=== PATIENT | male | born 1955 | race Caucasian/White ===

== ENCOUNTER 2018-07-28 00:32 | Outpatient (CLI) | payer MEDICAID, SELFPAY ==
--- NOTE | 2018-07-28 13:29 | DI.CT_ITS ---
SYMPTOMS/DIAGNOSIS: CHRONIC SINUSITIS, J32.8, NASAL POLYPOSIS, J33.[address]: Comparison is made with May,. Bilateral medial antrectomies are seen. There has also been resection of some ethmoid sinuses. There has been interval improvement in the previously noted severe sinusitis. There is some mucus retention within both frontal sinuses, as well as both sphenoid sinuses, right greater than left. Mild maxillary sinus mucosal thickening and upper ethmoid mucosal thickening is seen. The mastoid air cells appear clear. The orbits and brain are unremarkable. IMPRESSION: Improvement in chronic sinusitis. The patient is status post sinus surgery.
== END 2018-07-28 00:52 ==
PROVIDERS: PCP Family Medicine; Visit Provider Otolaryngology
DX: J32.8 Other chronic sinusitis (principal); J33.9 Nasal polyp, unspecified; Z98.890 Other specified postprocedural states
CPT/HCPCS: 70486

== ENCOUNTER 2019-03-27 13:23 | Outpatient (REF) | payer MEDICAID, SELFPAY ==
[2019-03-27 18:44] LABS: TSH (W/Ref FT4) 10.67 uIU/mL (0.36-3.74)
[2019-03-27 19:00] LABS: FREE T4 0.73 ng/dL (0.76-1.46)
== END 2019-03-27 13:43 ==
LOC: LBN 13:23
PROVIDERS: PCP Family Medicine; Visit Provider Family Medicine
DX: E03.9 Hypothyroidism, unspecified (principal)
CPT/HCPCS: 84439; 84443

== ENCOUNTER 2019-06-26 12:04 | Outpatient (REF) | payer MEDICAID, SELFPAY ==
[2019-06-26 19:36] LABS: TSH (W/Ref FT4) 8.35 uIU/mL (0.36-3.74)
[2019-06-26 19:53] LABS: FREE T4 0.95 ng/dL (0.76-1.46)
== END 2019-06-26 12:24 ==
LOC: LBN 12:04
PROVIDERS: PCP Family Medicine; Visit Provider Family Medicine
DX: E03.9 Hypothyroidism, unspecified (principal)
CPT/HCPCS: 84439; 84443

== ENCOUNTER 2021-02-04 09:13 | Outpatient (CLI) | payer MEDICARE, MEDICAID, SELFPAY ==
--- OUTSIDE RECORDS SUMMARY | 2021-02-04 09:19 | XMS_ITS ---
:1955 Author Care Team Providers Name Role Phone MAHENDRA POPE MD Senior Education Specialist [phone] SKYLAR RUIZ ([facility]) Primary Care Provi wilver [phone] [facility] MEDICAL RECORDS Primary Care Provider [phone] Allergies Code Code System Name Reaction Severity Status Onset NKDA ? Medications Name Status Start Date Stop Date ? ? amlodipine 5 mg tablet Active ? Not avail able Arnuity Ellipta 200 mcg/actuation powder for inhalation Complete d 12/20/2015 01/19/2016 1 (one) Inhalation: daily azithromycin 250 mg tablet Completed ? 06/30 budesonide 0.5 mg/2 mL suspension Active ? Not available for nebulization cephalexin 250 mg capsule Completed ? 2017 Dupixent 300 mg/2 mL subcutaneous syringe Active ? Not available INJECT 1 SYRINGE UNDER THE SKIN EVERY 2 WEEKS Farxiga 10 mg tablet Active ? Not availab le Flonase Allergy Relief 50 mcg/actuation nasal spray,suspensi on Completed 03/20/2016 05/07/2017 1 (one) Suspension Suspension: daily ipratropium 0.5 mg-albuterol 3 mg Active ? Not available (2.5 mg base)/3 mL nebulization soln levofloxacin 500 mg tablet Active ? Not a vailable levothyroxine 100 mcg tablet Active ? Not available levothyroxine 112 mcg tablet Active ? Not available losartan 100 Completed ? 06/30/2018 mg-hydrochlorothiazide 12.5 mg tablet losartan 100 Active ? Not available mg-hydrochlorothiazide 25 mg tablet losartan 50 Completed ? 06/30/2018 mg-hydrochlorothiazide 12.5 mg tablet lovastatin 40 mg tablet Active ? Not avai lable metformin 1,000 mg tablet Active ? Not av ailable montelukast 10 mg tablet Active ? Not marlo ilable TAKE ONE TABLET BY MOUTH AT BEDTIME mupirocin 2 % topical ointment Active ? N ot available neomycin 3.5 mg/g-polymyxin B Active ? No t available 10,000 unit/g-dexameth 0.1 % eye oint Nucala 100 mg subcutaneous solution Completed ? 06/30/2018 Inject 1 mL every 4 weeks by subcutaneous route. 1.0ml/100mg given sc over left distal tricep. Lot #[id number], Exp. 03/2020. omeprazole 40 mg capsule,delayed Active ? Not available release oxycodone 5 mg tablet Active ? Not availa ble prednisolone acetate 1 % eye Active ? Not available drops,suspension prednisone 10 mg tablet Completed ? 08/12/19 19 ProAir HFA 90 mcg/actuation Active ? Not available aerosol inhaler Spiriva Respimat 1.25 Active ? Not availa ble mcg/actuation solution for inhalation sulfamethoxazole 800 Completed ? 10/14/2018 mg-trimethoprim 160 mg tablet Symbicort 160 mcg-4.5 Active ? Not availa ble mcg/actuation HFA aerosol inhaler Xopenex HFA 45 mcg/actuation aerosol inhaler Completed 08/201503/24/2016 2 (two) Puff: every six hours, as needed Problems Name Status Onset Date Source ? Severe Persistent Asthma Unknown 06/30/2018 ? Severe Persistent Asthma Active 06/30/2018 ? Sinusitis Active ? History Acute Exacerbation of Asthma Active ? His tory Acute Bronchospasm Active ? History Wheezing Unknown ? History Procedure by Method Active ? History Procedures Date Name Performed by ? 07/19/1960 Tonsilectomy/adenoids Information not av ailable 10/14/2018 Spirometry Information not avai lable Notes: 09/14/2017 endoscopic sin us surgery ([facility] Dr. Pedraza) Results Lab Results None recorded. Past Encounters None recorded. Social History Tobacco Smoking Status Never Smoker Vaccine List Vaccine Type influenza, injectable, quadrivalent 05/16/2018 pneumococcal polysaccharide PPV23 05/16/2018 Tdap 12/11/2009 Plan of Care Reminders Provider Appointments None ? ? recorded. Lab None ? ? recorded. Referral None ? ? recorded. Procedures None ? ? recorded. Surgeries None ? ? recorded. Imaging None ? ? recorded. Vitals 10/14/2018 11:30AM Office 30 Height Weight BMI Blood Pressure 187.96 cm 151.2 kg 42.8 kg/m2 144/80 mm[Hg] 08/12/2018 09:30AM Office 30 Height Weight BMI Blood Pressure 187.96 cm 147.75 kg 41.8 kg/m2 140/80 mm[Hg] 06/30/2018 10:15AM Office 30 Height Weight BMI Blood Pressure 187.96 cm 144.5 kg 40.9 kg/m2 128/80 mm[Hg] 02/24/2018 08:00AM Injection 30 Height Weight BMI Blood Pressure 187.96 cm 145 kg 41 kg/m2 150/88 mm[Hg] 01/27/2018 Blood Pressure 140/80 mm[Hg] 12/23/2017 08:00AM Injection 30 Height Weight BMI Blood Pressure 187.96 cm 145.6 kg 41.2 kg/m2 148/80 mm[Hg] 10/15/2017 Height Weight Blood Pressure 187.96 cm 146.51 kg 142/80 mm[Hg] 09/10/2017 Height Weight Blood Pressure 187.96 cm 141.52 kg 136/70 mm[Hg] 08/26/2017 Height Weight Blood Pressure 187.96 cm 141.52 kg 132/84 mm[Hg] 06/01/2017 Height Weight Blood Pressure 187.96 cm 140.61 kg 140/90 mm[Hg] 05/07/2017 Height Weight Blood Pressure 187.96 cm 138.8 kg 144/80 mm[Hg] 07/03/2016 Height Weight Blood Pressure 187.96 cm 133.36 kg 126/84 mm[Hg] 06/19/2016 Height Weight Blood Pressure 187.96 cm 133.53 kg 124/82 mm[Hg] 02/06/2016 Height Weight Blood Pressure 187.96 cm 138.4 kg 126/84 mm[Hg] 12/20/2015 Height Weight Blood Pressure 187.96 cm 139.71 kg 140/86 mm[Hg] 10/18/2015 Height Weight Blood Pressure 187.96 cm 139.25 kg 138/84 mm[Hg] 09/20/2015 Height Weight Blood Pressure 187.96 cm 139.43 kg 138/78 mm[Hg]
--- OUTSIDE RECORDS SUMMARY | 2021-02-04 09:19 | XMS_ITS ---
:1955 Author Care Team Providers Name Role Phone DR. SKYLAR RUIZ Primary Care Provider [phone] DR. SKYLAR RUIZ Referring Provider [phone] Allergies Code Code System Name Reaction Severity Status Onset NKDA ? Medications Name Status Start Date Stop Date ? ? budesonide-formoterol HFA 160 mcg-4.5 mcg/actuation aerosol inha ler Active ? Not available Inhale 2 puffs twice a day by inhalation route. Dupixent 300 mg/2 mL subcutaneous syringe Active ? Not available Inject 300 mg every 2 weeks by subcutaneous route. FreeStyle Lite Strips Active ? Not availa ble TEST DAILY ibuprofen 200 mg tablet Active ? Not avai lable Take 2 tablets every 4 hours by oral route as needed. levothyroxine 100 mcg tablet Active ? Not available Take 1 tablet every day by oral route. losartan 100 mg-hydrochlorothiazide 25 mg tablet Active ? Not available Take 1 tablet every day by oral route. lovastatin 40 mg tablet Active ? Not avai lable Take 1 tablet every day by oral route. metformin 1,000 mg tablet Active ? Not av ailable Take 1 tablet twice a day by oral route. multivitamin Active ? Not available ONCE DAILY mupirocin calcium 2 % nasal ointment Completed ? 03/21/2020 APPLY ONE-HALF OF THE OINTMENT FROM THE TUBE INTO EACH NOSTRIL BY TOPICAL ROUTE 2 TIMES PER DAY IN THE MORNING AND EVENING Nucala 100 mg subcutaneous solution Active ? Not available Inject 100 mg every 4 weeks by subcutaneous route. omeprazole 40 mg capsule,delayed release Active ? Not available Take 1 capsule twice a day by oral route. Pred Forte 1 % eye drops,suspension Completed ? 03/21/2020 INSTILL 1 DROP INTO AFFECTED EYE(S) BY OPHTHALMIC ROUTE 2 TIMES PER DAY sulfamethoxazole 800 mg-trimethoprim 160 mg tablet Active ? Not available Take 1 tablet every 12 hours by oral route. tiotropium 2.5 mcg-olodaterol 2.5 mcg/actuation mist for inhalat ion Active ? Not available Inhale 2 puffs every day by inhalation route. Vitamin D3 25 mcg (1,000 unit) tablet Active ? Not available Take 1 tablet every day by oral route. Xopenex HFA 45 mcg/actuation aerosol inhaler Active ? Not available Inhale 2 puffs every 4 hours by inhalation route. Problems Name Status Onset Date Source ? Type 2 Diabetes Mellitus Active 08/10/2018 ? On Examination - Cracked Skin of Feet Active 08/10/2018 ? Procedures Date Name Performed by ? ? External Maxillary Antrostomy Informatio n not available ? Sphenoid Sinus Surgery Information not a vailable ? Ethmoidotomy Information not avai lable ? Tonsilectomy/adenoids Information not av ailable Results Lab Results None recorded. Past Encounters 02/22/2020 Pain of Left Ankle Joint Bernabe Harding: [address] [place] [address], Ph. Social History Tobacco Smoking Status Never Smoker Notes: 019 Vaccine List None recorded. Plan of Care Reminders Provider Appointments None ? ? recorded. Lab None ? ? recorded. Referral None ? ? recorded. Procedures None ? ? recorded. Surgeries None ? ? recorded. Imaging None ? ? recorded. Vitals 02/22/2020 08:30AM NEW PATIENT Weight Blood Pressure 136.08 kg 138/70 mm[Hg] 08/24/2018 04:15PM NEW PATIENT Height Weight BMI Blood Pressure 187.96 cm 136.08 kg 38.5 kg/m2 138/70 mm[Hg]
[2021-02-04 10:56] LABS: ALT 33 U/L (16-63); AST 10 U/L (15-37); Alkaline Phosphatase 66 U/L (46-116); Anion Gap 11.1 mmol/L (3-11); BUN 26 mg/dL (7-18); Bilirubin, Total 0.7 mg/dL (0.2-1.0); CO2 26.9 mmol/L (21.0-32.0); CREATININE 1.3 mg/dL (0.70-1.30); Calcium 9.5 mg/dL (8.5-10.1); Calculated LDL 103 mg/dL (<100); Chloride 104 mmol/L (98-107); Cholesterol 195 mg/dL (<200); Estimated GFR 55.23 (mL/min/1.73m2); Glucose 145 mg/dL (74-106); HDL Cholesterol 43 mg/dL (40-60); Sodium 142 mmol/L (136-145); Total Protein 8.1 g/dL (6.4-8.2); Triglyceride 249 mg/dL (<150)
== END 2021-02-04 09:14 | disposition home or self-care (01) ==
LOC: LBO 09:18
PROVIDERS: PCP Family Medicine; Visit Provider Family Medicine
DX: E11.9 Type 2 diabetes mellitus without complications (principal)
CPT/HCPCS: 36415; 80053; 80061

== ENCOUNTER 2023-11-19 18:04 | Inpatient (IN) | payer MEDICARE, SELFPAY ==
[2023-11-19] VITALS (19 sets, daily range): BP systolic 140–169; BP diastolic 72–85; PULSE 64–85; RESP 9–20; TEMP 36.8–36.9; O2SAT 96–100
--- NOTE | 2023-11-19 18:10 | W.ED.GENAD ---
Discharge Plan Disposition Patient Disposition: Admit to [facility] Condition: Good Discharge Details Clinical Impression: Diplopia Primary Care Provider: Hernandez Melendrez ED Provider: Tucker Cristobal Mesa Meds and New Rx's Prescriptions: No Action budesonide-formoterol [Symbicort] 160-4.5 mcg/actuation HFA aerosol inhaler 1 inh inhalation ONCE sildenafil [Viagra] 100 mg tablet 100 mg PO PRN Qty: 12 12RF Rx Instructions: administer 30 minutes to 4 hours before activity Jardiance 25 mg tablet 25 mg PO DAILY Qty: 90 3RF albuterol sulfate 90 mcg/actuation HFA aerosol inhaler 2 puff IH QID PRN (Reason: shortness of breath or wheezing) Qty: 18 12RF semaglutide 14 mg tablet 14 mg PO DAILY Qty: 90 3RF multivitamin [Daily Vitamin] 1 EACH tablet 1 ea PO DAILY cholecalciferol (vitamin D3) 1,000 UNIT tablet 1,000 unit PO DAILY (DME) FreeStyle Lite Strips 1 EACH strip 1 ea Miscellaneous DAILY Qty: 100 Rx Instructions: To test Blood Sugars qd, to keep AIC below 7.0. DX: 11.9 (DME) lancets [FreeStyle Lancets] 1 EACH misc 1 ea Miscellaneous DAILY Qty: 100 Rx Instructions: To test blood sugars daily to keep AIC below 7.0. Dx: 11.9. ibuprofen 200 MG tablet 400 mg PO Q4H PRN Dupixent Syringe 300 mg/2 mL syringe 300 mg SC Q2W Qty: 4 12RF metformin 1,000 mg tablet 1,000 mg PO BID Qty: 180 3RF Rx Instructions: to control diabetes (E11.9) losartan-hydrochlorothiazide 100-25 mg tablet 1 tab PO DAILY Qty: 90 3RF levothyroxine 125 mcg tablet 125 mcg PO DAILY Qty: 90 3RF lovastatin 40 mg tablet 40 mg PO DAILY Qty: 90 3RF Rx Instructions: to reduce cardiovascular risk, diabetes, lower cholesterol HPI General Mode of arrival: ambulatory. Date/Time Provider Initiated Documentation: 11/19/23 18:10. Limitations to Documentation: no limitations. Information obtained by: patient, RN notes reviewed and old records reviewed. HPI Narrative: Patient referred into ED from urgent care for evaluation of double vision. Patient reports that at the beginning of this week he had felt like maybe he was coming down with something but nothing specific. On Wednesday developed some right sinus pressure but no real pain. Continued on Wednesday so he started taking ibuprofen. Has no pain whatsoever currently and has never had any fever, earache, headache, eye pain, cough. Maybe had a little bit of a sore throat. This morning when he woke up around 7 AM he realized he was experiencing double vision. This has continued throughout the day and he went to urgent care this evening. After evaluation there he was sent here for further workup. He denies any dizziness, gait disturbance, numbness, weakness, speech problem, mental status change. Denies any eye pain. Does have history of diabetes, high cholesterol, hypertension. Related Data Home Medications Medication Instructions Recorded Confirmed cholecalciferol (vitamin D3) 25 1,000 unit PO DAILY 01/17/13 08/24/23 mcg (1,000 unit) tablet multivitamin (Daily Vitamin tablet) 1 ea PO DAILY 01/17/13 08/24/23 blood sugar diagnostic (FreeStyle #100 strips 09/03/15 08/24/23 Lite Strips) lancets 28 gauge (FreeStyle #100 ea 09/03/15 08/24/23 Lancets) ibuprofen 200 mg tablet 400 mg PO Q4H PRN 09/24/15 08/24/23 albuterol sulfate 90 mcg/actuation 2 puff inhalation QID PRN 06/28/20 08/24/23 aerosol inhaler shortness of breath or wheezing #18 grams budesonide-formoterol HFA 160 1 inh inhalation ONCE 11/04/21 08/24/23 mcg-4.5 mcg/actuation aerosol inhaler (Symbicort) dupilumab 300 mg/2 mL subcutaneous 300 mg (2 mL) subcut Q2W #4 mL 01/05/23 08/24/23 syringe (Dupixent) metformin 1,000 mg tablet 1,000 mg PO BID #180 tab-caps 01/09/23 08/24/23 Viagra 100 mg tablet (sildenafil) 100 mg PO PRN #12 tabs 05/25/23 08/24/23 empagliflozin 25 mg tablet 25 mg PO DAILY #90 tabs 05/25/23 08/24/23 (Jardiance) levothyroxine 125 mcg tablet 125 mcg PO DAILY #90 tabs 07/23/23 08/24/23 losartan 100 1 tab PO DAILY #90 tab-caps 07/23/23 08/24/23 mg-hydrochlorothiazide 25 mg tablet semaglutide 14 mg tablet 14 mg PO DAILY #90 tabs 08/24/23 08/24/23 lovastatin 40 mg tablet 40 mg PO DAILY #90 tab-caps 09/21/23 Previous Rx's Medication Instructions Recorded albuterol sulfate 90 mcg/actuation 2 puff inhalation QID PRN 06/28/20 aerosol inhaler shortness of breath or wheezing #18 grams dupilumab 300 mg/2 mL subcutaneous 300 mg (2 mL) subcut Q2W #4 mL 01/05/23 syringe (Dupixent) metformin 1,000 mg tablet 1,000 mg PO BID #180 tab-caps 01/09/23 Viagra 100 mg tablet (sildenafil) 100 mg PO PRN #12 tabs 05/25/23 empagliflozin 25 mg tablet 25 mg PO DAILY #90 tabs 05/25/23 (Jardiance) levothyroxine 125 mcg tablet 125 mcg PO DAILY #90 tabs 07/23/23 losartan 100 1 tab PO DAILY #90 tab-caps 07/23/23 mg-hydrochlorothiazide 25 mg tablet semaglutide 14 mg tablet 14 mg PO DAILY #90 tabs 08/24/23 lovastatin 40 mg tablet 40 mg PO DAILY #90 tab-caps 09/21/23 Allergies Allergy/AdvReac Type Severity Reaction Status Date / Time No Known Allergies Allergy Verified 11/19/23 18:13 Review of Systems Narrative: Per HPI Exam Narrative Exam Narrative: Const: WDWN male in NAD. VS per triage. HEENT: NC/AT. Normal facial exam. Eyes: Normal conjunctiva and sclera. PERRL and EOMI but has disconjugate gaze with right eye ever so slightly turned in. VF are in tact. Neck: Supple. Trachea midline. Lungs: Normal respiratory effort. Lungs are clear. Cor: RRR without murmur. Good radial pulses. Neuro: A+O x 3. Normal speech, mentation, gait. Cranial nerves II - XII grossly intact. No gross motor or sensory deficit. Ext: No C/C/E. Skin: Warm and dry. Medical Decision Making Patient presenting to ED with diplopia which he first noticed when he woke up this morning. His extraocular muscles are intact but he does have disconjugate gaze. His visual fuentes are intact. His neurologic exam is otherwise normal and his NIH score is 0. He thought it was related to sinus infection but is not having any sinus pain or discomfort currently. Be highly unlikely that without pain or significant swelling that this is related to such. More concerned regarding possible central cause and will obtain EKG, laboratory studies, CTA of the head and neck. Patient's EKG is sinus rhythm with PAC and no acute ST changes. Laboratory studies unremarkable. Little bit of renal insufficiency which is baseline with a creatinine 1.4. CT head is negative for acute pathology and specifically no orbital findings. CTA head and neck with no LVO, dissection, acute findings. Concern for lacunar infarct, less likely something like MS given his age and acute onset. Will dose with aspirin and discussed with hospitalist to admit for MRI, ECHO, further CVA/TIA workup. Medical Records Medical records reviewed: Yes I reviewed the patient's medical records. Lab Data Lab results reviewed: Yes I reviewed the patient's lab results. ECG Data Attestation: I personally reviewed and interpreted this ECG (s) as follows: Quality:SDOH Health Related Social Needs: No Data to Display PFSH All Active Problems (Updated 11/19/23 @ 21:47 by Tucker Cristobal MD) Diplopia (Acute) Patellar bursitis of right knee (Acute) Umbilical hernia (Acute) Eversion deformity of left foot (Acute) Sinusitis with nasal polyps (Chronic 02/22/17) Butts/Tabor Impotence due to erectile dysfunction (Chronic 04/15/12) 03/2012 Chronic sinusitis, unspecified (Chronic 09/14/17) Dr Pedraza [facility] ENT- chronic rhinosinusitis with polyposis Bilateral nasal endoscopy Medical History Diabetes mellitus type II, controlled (12/18/07) DIET CONTROLLED, 2008 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 No problems noted. Social History Smoking/Tobacco Use Status: Never Smoking risk assessment performed?: Yes Alcohol Intake: never Drug use: Never Substance use type: does not use current occupation: [employer] Pets and animals: No Sexually active: Yes Current gender identity: male What is your relationship status?: How often do you talk on the phone with friends or family?: three or more times per week How often do you get together with friends or relatives?: three or more times per week Do you belong to any clubs or organized social groups?: no Panel score (0-1 are the most socially isolated patients): 1 What type of physical activity do you participate in: decline to answer Duration: decline to answer Frequency: decline to answer Seatbelt use: always Drive intox or ride w/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
--- NOTE | 2023-11-19 18:15 | RT.EKG_ITS ---
APPROVED REPORT Exam: Resting ECG Reason for Exam: possible TIA/CVA Patient Location: E HR:74 bpm ECG Measurements Heart Rate 74 AXIS ID 157 P 50 QRSd 84 QRS -8 QT 369 T 55 QTc 407 Conclusion Sinus rhythm...normal P axis, V-rate 60- 99 Atrial premature complex...SV complex w/ short R-R interval Normal [place] Normal ST Segments.
[2023-11-19] MEDS: Lactated Ringers 1,000 ML 1000 ML IV (18:39)
[2023-11-19 19:25] LABS: Abs Immature Grans 0.06 10^3/uL (0.0-0.06); Absolute Basophil Count 0.07 10^3/uL (0.0-0.2); Absolute Eosinophil Count 1.63 10^3/uL (0.0-0.7); Absolute Monocyte Count 1.09 10^3/uL (0.1-0.8); Basophils % 0.6 %; Eosinophils % 14.3 %; HCT 48.6 % (40.0-50.0); HGB 16.7 g/dL (13.5-17.5); Immature Grans % 0.5 %; Lymphocytes % 34.4 %; MCH 33.5 pg (27.0-33.0); MCHC 34.4 % (32.0-36.0); MCV 97 fL (80-95); MPV 9.8 fL (8.0-11.0); Monocytes % 9.6 %; Neutrophils % 40.6 %; Platelet Count 205 10^3/uL (130-400); RBC 4.99 10^6/uL (4.36-5.78); RDW 12.2 % (11.8-14.1); RDW-SD 44.1 fL; WBC 11.38 10^3/uL (4.4-10.8)
[2023-11-19 19:27] LABS: Absolute Lymphocyte Count 3.91 10^3/uL (1.2-3.4); Absolute Neutrophil Count 4.62 10^3/uL (1.2-6.7)
[2023-11-19] MEDS: Omnipaque 350 MG/ML 100 ML BTL IJ (19:35)
[2023-11-19] MEDS: Normal Saline - Diluent 50 ML VIAL IJ (19:38)
[2023-11-19 19:40] LABS: ALT 30 U/L (16-63); AST 14 U/L (15-37); Albumin 4.3 g/dL (3.4-5.0); Alkaline Phosphatase 84 U/L (46-116); Anion Gap 10.8 mmol/L (3-11); BUN 31 mg/dL (7-18); Bilirubin, Total 0.8 mg/dL (0.2-1.0); CO2 28.2 mmol/L (21.0-32.0); CREATININE 1.4 mg/dL (0.70-1.30); Calcium 9.9 mg/dL (8.5-10.1); Chloride 101 mmol/L (98-107); Estimated GFR 54.41 (mL/min/1.73m2); Glucose 141 mg/dL (74-106); Potassium 3.7 mmol/L (3.5-5.1); Sodium 140 mmol/L (136-145); Total Protein 9.2 g/dL (6.4-8.2)
--- NOTE | 2023-11-19 19:41 | DI.CT_ITS ---
Exam(s) CT BRAIN NECK CTA EXAM: CT BRAIN NECK CTA CLINICAL HISTORY: diplopia. TECHNIQUE: Imaging Protocol: Axial CT angiography was performed with multi-slice acquisition and mu lti-planar and MIP reconstructions. CONTRAST MATERIAL: Intravenous: Omnipaque 350 Contrast volume:85 ml COMPARISON: CT SINUS CT WITHOUT CONTRAST from 06/26/[address] WITHOUT CONTRAST from 06/15/2017 FINDINGS: CT Head W/O and W contrast: Ventricles and Extra axial spaces: Normal in size and morphology for the patient's age. Hemorrhage: None. Cerebral parenchyma: No evidence of acute infarct or mass. Midline shift: None. Brainstem/Cerebellum: No acute findings.. Calvarium: Normal. Visualized Paranasal sinuses/Mastoids: Clear. Sinus surgery. Mild mucosal thickening. Soft Tissues: Unremarkable. Enhancement: Normal. CTA Brain W: Internal Carotid Arteries: Petrous: Normal. Cavernous: Normal. Cerebral: Normal. Middle Cerebral Arteries: Right: No aneurysm, occlusion or significant stenosis. Left: No aneurysm, occlusion or significant stenosis. Anterior Cerebral Arteries: Right: No aneurysm, occlusion or significant stenosis. Left: No aneurysm, occlusion or significant stenosis. Posterior cerebral Arteries: Right: No aneurysm, occlusion or significant stenosis. Left: No aneurysm, occlusion or significant stenosis. Vertebral Arteries: Right: No aneurysm, occlusion or significant stenosis. Left: No aneurysm, occlusion or significant stenosis. Basilar Artery: No aneurysm, occlusion or significant stenosis. CTA Neck W: Common Carotid: Right: No dissection, occlusion or significant stenosis. Left: No dissection, occlusion or significant stenosis. External Carotid: Right: No dissection, occlusion or significant stenosis. Left: No dissection, occlusion or significant stenosis. Internal Carotid: Right: No dissection, occlusion or significant stenosis. Left: No dissection, occlusion or significant stenosis. Vertebral Artery: Right: No dissection, occlusion or significant stenosis. Left: No dissection, occlusion or significant stenosis. Lung Apices: Normal. Bones: Degenerative changes in the cervical spine. No acute abnormality. Soft Tissues: Normal. IMPRESSION: 1. CTA brain: Normal CTA examination of the [place]. 2. Head CT: Unremarkable CT Head. 3. CTA neck: Normal CTA examination of the neck. RADIATION DOSE DELIVERED: Total DLP DATA REPOSITORY: All CT scans at this facility are submitted to the National Radiology Data Registry (NRDR) Dose Index Registry (DIR) with the [employer] (ACR). RADIATION OPTIMIZATION: All CT scans at this facility use at least one of these dose optimization te chniques: automated exposure control; mA and/or kV adjustment per patient size (includes targeted exa ms where dose is matched to clinical indication); or iterative reconstruction.
--- NOTE | 2023-11-19 20:24 | DI.VRAD_ITS ---
PROCEDURE INFORMATION: Exam: CTA Head Without And With Contrast, Arteriography Exam date and time: 11/19/2023 7:35 PM Age: 68 years old Clinical indication: Diplopia TECHNIQUE: Imaging protocol: Computed tomographic angiography of the head without and with contrast. Exam focused on the arteries. 3D rendering (Not supervised by radiologist): MIP and/or 3D reconstructed images were created by the technologist. Radiation optimization: All CT scans at this facility use at least one of these dose optimization techniques: automated exposure control; mA and/or kV adjustment per patient size (includes targeted exams where dose is matched to clinical indication); or iterative reconstruction. Contrast material: [id number]; Contrast volume: 100 ml; Contrast route: INTRAVENOUS (IV); COMPARISON: CT Head^SINUS [facility] (Adult) 07/28/2018 1:11 PM FINDINGS: ANTERIOR CIRCULATION: Right internal carotid artery: Intracranial segment is patent with no significant stenosis or occlusion. No aneurysm. Right middle cerebral artery: No occlusion or significant stenosis. No aneurysm. Right anterior cerebral artery: No occlusion or significant stenosis. No aneurysm. Left internal carotid artery: Intracranial segment is patent with no significant stenosis. No aneurysm. Left middle cerebral artery: No occlusion or significant stenosis. No aneurysm. Left anterior cerebral artery: No occlusion or significant stenosis. No aneurysm. POSTERIOR CIRCULATION: Right vertebral artery: No occlusion or significant stenosis. No aneurysm. Left vertebral artery: No occlusion or significant stenosis. No aneurysm. Basilar artery: No occlusion or significant stenosis. No aneurysm. Right posterior cerebral artery: No occlusion or significant stenosis. No aneurysm. Left posterior cerebral artery: No occlusion or significant stenosis. No aneurysm. HEAD: Brain: There is no acute intracranial hemorrhage, mass effect or midline shift. There is no large acute territorial cerebral infarct. Cerebral ventricles: Normal. No ventriculomegaly. Bones: No acute fracture. Orbital cavities: The bilateral orbits appear grossly unremarkable. No evidence of orbital mass. The globes are intact bilaterally. Paranasal sinuses: There is mild mucosal thickening in the ethmoid and maxillary sinuses with evidence of prior ethmoidectomy and antrostomy. Mastoid air cells: Visualized mastoids are normal. No mastoid effusion. Soft tissues: Unremarkable. IMPRESSION: No acute intracranial hemorrhage, mass effect or midline shift. No evidence of stenosis, occlusion or aneurysm. PROCEDURE INFORMATION: Exam: CTA Neck Without And With Contrast Exam date and time: 11/19/2023 7:35 PM Age: 68 years old Clinical indication: Diplopia TECHNIQUE: Imaging protocol: Computed tomographic angiography of the neck without and with contrast. Exam focused on the cervical segments of the vasculature. 3D rendering (Not supervised by radiologist): MIP and/or 3D reconstructed images were created by the technologist. Radiation optimization: All CT scans at this facility use at least one of these dose optimization techniques: automated exposure control; mA and/or kV adjustment per patient size (includes targeted exams where dose is matched to clinical indication); or iterative reconstruction. Contrast material: [id number]; Contrast volume: 100 ml; Contrast route: INTRAVENOUS (IV); COMPARISON: CT Head^SINUS [facility] (Adult) 07/28/2018 1:11 PM FINDINGS: Right common carotid artery: No stenosis. No dissection or occlusion. Right internal carotid artery: No stenosis of the extracranial segment. No dissection or occlusion. Right external carotid artery: No occlusion or stenosis of the origin. Left common carotid artery: No stenosis. No dissection or occlusion. Left internal carotid artery: No stenosis of the extracranial segment. No dissection or occlusion. Left external carotid artery: No occlusion or stenosis of the origin. Right vertebral artery: No stenosis. No dissection or occlusion. Left vertebral artery: No stenosis. No dissection or occlusion. Soft tissues: Normal. No significant soft tissue swelling. Bones/joints: No acute fracture. IMPRESSION: No stenosis or occlusion. REFERENCES: NASCET CRITERIA. The degree of stenosis in the cervical segment of the internal carotid artery is based on NASCET criteria. Normal is no stenosis. Mild is less than 50% stenosis. Moderate is 50-69% stenosis. Severe is 70% to 99% stenosis. Total occlusion is no detectable patent lumen. Dictated and Authenticated by: Aylin Gentile MD. Ordering:GIO Ceballos MD
[2023-11-19] MEDS: Aspirin 81 MG CHEW 324 MG CH (21:46)
[2023-11-19] MEDS: Acetaminophen 325 MG TAB (21:48)
--- NOTE | 2023-11-19 21:49 | HPE_ITS ---
Date of service: 11/19/23 Time of Service: 21:50 Assessment and Plan Assessment and plan (1) Diplopia: Start date: 11/19/23 Status: Acute Assessment and plan: This is a 68-year-old gentleman who awakened with double vision on the day of presentation to the ED. There are no other focal neurological findings and he denies any tick bites or recent signs or symptoms of Lyme disease. He does have risk factors for CVA with hypertension, diabetes and obesity with hyperlipidemia. He has had no previous cardiovascular events. He denies any headache. Differential diagnosis includes CVA though imaging is negative and we need to think about acute Lyme disease. He was initiated on Rocephin which can be switched to doxycycline in the morning for discharge if he is doing well. He also was given a low-dose of aspirin and will continue baby aspirin daily along with maximum dose statin therapy. He should allow permissive hypertension during his observation and at home for the next 48 hours with patient willing to monitor this and hold his oral therapy if he is able to be discharged in the morning. He does have scheduled appointments in the morning and if imaging cannot be performed at this institution over the weekend, he is going to wait to risk and benefits of discharge home with continued self monitoring on aspirin and doxycycline. Tickborne disease panel not be available over the weekend as well since this is sent to [facility] for performance of lab. Patient is a full code. (2) Diabetes mellitus type II, controlled: Assessment and plan: Hold oral agents for now with glucometer members before meals and at bedtime and short acting insulin coverage. He will restart his metformin after 48 hours since he did IV dye but could continue his other oral medications at home. Usually his diabetes is well-controlled. Qualifiers: Chronic kidney disease stage: stage 3 (moderate) Diabetes mellitus complication detail: with chronic kidney disease Diabetes mellitus complication status: with kidney complications Diabetes mellitus senior living insulin use: [facility] senior living use Qualified Code(s): E11.22 - Type 2 diabetes mellitus with diabetic chronic kidney disease; N18.30 - Chronic kidney disease, stage 3 unspecified (3) Hypertension: Assessment and plan: Stable and not low at this time with permissive hypertension with possible CVA. If patient goes home he should continue this for the next 48 hours along with holding his metformin. Qualifiers: Hypertension type: primary hypertension Qualified Code(s): I10 - Essential (primary) hypertension (4) Mixed hyperlipidemia: Assessment and plan: Patient be discharged on high-dose atorvastatin 80 mg daily pending further imaging. Was previously on mild to moderate dose of statin. (5) Chronic kidney disease: Assessment and plan: This appears chronic and stable associate with diabetes. Monitor labs. Qualifiers: Chronic kidney disease stage: stage 3 (moderate) Chronic kidney disease stage 3 subtype: stage 3a (GFR 45-59) Qualified Code(s): N18.31 - Chronic kidney disease, stage 3a (6) Asthma: Status: Chronic Assessment and plan: Patient is chronically on Dupixent injections every 2 weeks. Patient has had recent symptoms of sinusitis but not exacerbation of his breathing. He has seen pulmonology in the past. 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 He sees double with both eyes open but when he closes either eye the double vision disappears. This persisted prompting ED evaluation. Patient denies any headache or recent fever or chills, rash and does not think he had any recent tick bites with no reported exposure. He had full evaluation in the ED with CT of the head and neck as well as CT of the brain with negative evaluation for acute CVA. Lab did reveal a slightly elevated WBC and slight hyperglycemia but was otherwise unrevealing. His symptoms persisted and he was initiated on loading dose of aspirin with high- dose statin and admitted for cardiac monitoring with plan to follow-up MRI and echocardiogram with bubble study for further evaluation. Neurology was not consulted with his focal neurological deficit and patient did have a tickborne disease panel drawn with initiation of Rocephin for possibility of Lyme disease with acute cranial nerve dysfunction appearing to be in the right eye with inward turning right eye with both eyes open and patient seeing double. This focal palsy could also be associated with lacunar infarct and CVA which did prompt observation overnight and treatment for possible CVA. Patient was agreeable with this plan and does wish to be discharged in the morning if the follow-up MRI and echocardiogram with bubble study can be done as an outpatient compromise in his health. These studies will not be available over the next 48 hours at this institution. He does have plans with out-of-town consultations with his job which are very important to him. He does have a racing car driver for the weekend to avoid injury. He is a full code. Review of Systems Narrative: 13 point review of systems otherwise unrevealing or stable. Patient is anxious to be discharged in the morning before 9 AM. PFS All Active Problems (Updated 11/20/23 @ 00:25 by Jp Vu) Asthma dependent on inhaled steroids (Chronic) Asthma (Chronic) Diplopia (Acute) Patellar bursitis of right knee (Acute) Umbilical hernia (Acute) Eversion deformity of left foot (Acute) Sinusitis with nasal polyps (Chronic 02/22/17) Doyline/Tabor Impotence due to erectile dysfunction (Chronic 04/15/12) 03/2012 Chronic sinusitis, unspecified (Chronic 09/14/17) Dr Pedraza [facility] ENT- chronic rhinosinusitis with polyposis Bilateral nasal endoscopy Medical History Diabetes mellitus type II, controlled (12/18/07) DIET CONTROLLED, 2008 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 No problems noted. Social History Smoking/Tobacco Use Status: Never Smoking risk assessment performed?: Yes Alcohol Intake: never Drug use: Never Substance use type: does not use Housing: house current occupation: [employer] Pets and animals: No Sexually active: Yes Current gender identity: male What is your relationship status?: How often do you talk on the phone with friends or family?: three or more times per week How often do you get together with friends or relatives?: three or more times per week Do you belong to any clubs or organized social groups?: no Panel score (0-1 are the most socially isolated patients): 1 What type of physical activity do you participate in: decline to answer Duration: decline to answer Frequency: decline to answer Seatbelt use: always Drive intox or ride w/intox racing car driver: No Working smoke detector in home: Yes Fire extinguisher in home: Yes Carbon monox detector in home: Yes Meds Allergies and Home Medications Allergies Allergy/AdvReac Type Severity Reaction Status Date / Time No Known Allergies Allergy Verified 11/19/23 18:13 Home Medications Medication Instructions Recorded Confirmed Type cholecalciferol (vitamin D3) 25 1,000 unit PO DAILY 01/17/13 11/19/23 History mcg (1,000 unit) tablet multivitamin (Daily Vitamin tablet) 1 ea PO DAILY 01/17/13 11/19/23 History blood sugar diagnostic (FreeStyle #100 strips 09/03/15 11/19/23 History Lite Strips) lancets 28 gauge (FreeStyle #100 ea 09/03/15 11/19/23 History Lancets) ibuprofen 200 mg tablet 400 mg PO Q4H PRN 09/24/15 11/19/23 History dupilumab 300 mg/2 mL subcutaneous 300 mg (2 mL) subcut Q2W #4 mL 01/05/23 11/19/23 Rx syringe (Dupixent) metformin 1,000 mg tablet 1,000 mg PO BID #180 tab-caps 01/09/23 11/19/23 Rx empagliflozin 25 mg tablet 25 mg PO DAILY #90 tabs 05/25/23 11/19/23 Rx (Jardiance) levothyroxine 125 mcg tablet 125 mcg PO DAILY #90 tabs 07/23/23 11/19/23 Rx losartan 100 1 tab PO DAILY #90 tab-caps 07/23/23 11/19/23 Rx mg-hydrochlorothiazide 25 mg tablet semaglutide 14 mg tablet 14 mg PO DAILY #90 tabs 08/24/23 11/19/23 Rx lovastatin 40 mg tablet 40 mg PO DAILY #90 tab-caps 09/21/23 11/19/23 Rx Exam Narrative Exam Narrative: General: Patient appears appropriate for age, morbidly obese and tall. He is anxious and slightly agitated with questioning but alert and oriented x 3. He is in no acute distress. HEENT: Normocephalic, eyes with pupils equal and reactive to light symmetrically, extraocular movements intact and sclera anicteric. With both eyes open looking forward his right eye is slightly turned nasally. There is no nystagmus. Oropharynx with moist mucosa and fair dentition. Neck: Supple without JVD and no auscultated carotid bruits. Back: Stooped posture without CVA tenderness. Lungs: Clear to auscultation percussion with no focalizing rales or rhonchi. Good aeration. Heart: Regular rate and rhythm with no murmurs gallops appreciated. Abdomen: Obese contour, soft nontender to palpation with no palpable hepatosplenomegaly. No sounds positive all quadrants. Genitalia/rectal: Exam deferred. Extremities: Without clubbing, cyanosis or pitting edema with nonpitting edema and hyperpigmentation over both legs circumferentially of the mid leg and ankle with atrophy of the skin and loss of hair but no ulceration. Good capillary refill. Skin: Normal color except over legs, warm and dry. Neuro: Cranial nerves II through XII significant for apparent interning right eye nasally when both eyes are open but extraocular movement is intact otherwise. When he closes his left eye his right eye deviation corrects itself. Otherwise cranial nerves intact. No focal motor deficits. No tremor. DTRs physiologic and symmetrical. No Babinski. Cerebellar testing not performed. Psych: Slightly agitated with otherwise normal affect, normal mood. Abnormal thought processes. Remote and recent memory grossly intact. Results Imaging Imaging Studies: Exam: CTA Head Without And With Contrast, Arteriography Exam date and time: 11/19/2023 7:35 PM Age: 68 years old Clinical indication: Diplopia. COMPARISON: CT Head^SINUS [facility] (Adult) 07/28/2018 1:11 PM FINDINGS: ANTERIOR CIRCULATION: Right internal carotid artery: Intracranial segment is patent with no significant stenosis or occlusion. No aneurysm. Right middle cerebral artery: No occlusion or significant stenosis. No aneurysm. Right anterior cerebral artery: No occlusion or significant stenosis. No aneurysm. Left internal carotid artery: Intracranial segment is patent with no significant stenosis. No aneurysm. Left middle cerebral artery: No occlusion or significant stenosis. No aneurysm. Left anterior cerebral artery: No occlusion or significant stenosis. No aneurysm. POSTERIOR CIRCULATION: Right vertebral artery: No occlusion or significant stenosis. No aneurysm. Left vertebral artery: No occlusion or significant stenosis. No aneurysm. Basilar artery: No occlusion or significant stenosis. No aneurysm. Right posterior cerebral artery: No occlusion or significant stenosis. No aneurysm. Left posterior cerebral artery: No occlusion or significant stenosis. No aneurysm. HEAD: Brain: There is no acute intracranial hemorrhage, mass effect or midline shift. There is no large acute territorial cerebral infarct. Cerebral ventricles: Normal. No ventriculomegaly. Bones: No acute fracture. Orbital cavities: The bilateral orbits appear grossly unremarkable. No evidence of orbital mass. The globes are intact bilaterally. Paranasal sinuses: There is mild mucosal thickening in the ethmoid and maxillary sinuses with evidence of prior ethmoidectomy and antrostomy. Mastoid air cells: Visualized mastoids are normal. No mastoid effusion. Soft tissues: Unremarkable. IMPRESSION: No acute intracranial hemorrhage, mass effect or midline shift. No evidence of stenosis, occlusion or aneurysm. PROCEDURE INFORMATION: Exam: CTA Neck Without And With Contrast Exam date and time: 11/19/2023 7:35 PM Age: 68 years old Clinical indication: Diplopia. COMPARISON: CT Head^SINUS [facility] (Adult) 07/28/2018 1:11 PM FINDINGS: Right common carotid artery: No stenosis. No dissection or occlusion. Right internal carotid artery: No stenosis of the extracranial segment. No dissection or occlusion. Right external carotid artery: No occlusion or stenosis of the origin. Left common carotid artery: No stenosis. No dissection or occlusion. Left internal carotid artery: No stenosis of the extracranial segment. No dissection or occlusion. Left external carotid artery: No occlusion or stenosis of the origin. Right vertebral artery: No stenosis. No dissection or occlusion. Left vertebral artery: No stenosis. No dissection or occlusion. Soft tissues: Normal. No significant soft tissue swelling. Bones/joints: No acute fracture. IMPRESSION: No stenosis or occlusion. Labs 11/19/23 18:34 11/19/23 18:34 Labs: Laboratory Results - last 24 hr 11/19/23 18:34 WBC 11.38 H RBC 4.99 Hgb 16.7 Hct 48.6 MCV 97 H MCH 33.5 H MCHC 34.4 RDW 12.2 Plt Count 205 MPV 9.8 Immature Gran % 0.5 Neutrophils % 40.6 Lymphocytes % 34.4 Monocytes % 9.6 Eosinophils % 14.3 Basophils % 0.6 Nucleated RBC % 0.0 Absolute Neutrophils 4.62 Absolute Lymphocytes 3.91 H Absolute Monocytes 1.09 H Absolute Eosinophils 1.63 H Absolute Basophils 0.07 Sodium 140 Potassium 3.7 Chloride 101 Carbon Dioxide 28.2 Anion Gap 10.8 BUN 31 H Creatinine 1.4 H Est GFR (CKD-EPI 2020) 54.41 Glucose 141 H Calcium 9.9 Magnesium 2.0 Total Bilirubin 0.8 AST 14 L ALT 30 Alkaline Phosphatase 84 Total Protein 9.2 H Albumin 4.3 Last Vital Signs Temp 36.8 C 11/19/23 18:14 Pulse 85 11/19/23 18:14 Resp 14 11/19/23 18:14 BP 169/76 H 11/19/23 18:14 Pulse Ox 100 11/19/23 18:14 Time Spent Time spent with Patient: >75 minutes Time was spent: preparing to see the patient(eg.review tests), obtaining and/or reviewing separately otained hiistory, ordering medications,tests, procedures, indepentently interpreting results and counseling the patient
--- NOTE | 2023-11-19 21:58 | NUR.NOTE ---
Assumed care of PTNursing Note:
[2023-11-19 22:34] LABS: TSH (W/Ref FT4) 7.54 uIU/mL (0.36-3.74)
[2023-11-19 22:51] LABS: FREE T4 1.11 ng/dL (0.76-1.46)
[2023-11-19] MEDS: Normal Saline Flush 10 ML SYR IVP (23:59)
[2023-11-19] MEDS: cefTRIAXone 2 GM/50 ML BAG IVPB (23:59)
[2023-11-20] MEDS: Normal Saline Flush 10 ML SYR IVP
[2023-11-20 03:31] VITALS: BP 126/62; PULSE 68; RESP 18; TEMP 36.1; O2SAT 94
[2023-11-20] MEDS: Acetaminophen 325 MG TAB 650 MG PO (05:16)
[2023-11-20 07:09] LABS: HCT 45.5 % (40.0-50.0); HGB 15.5 g/dL (13.5-17.5); MCH 33.7 pg (27.0-33.0); MCHC 34.1 % (32.0-36.0); MCV 99 fL (80-95); MPV 9.6 fL (8.0-11.0); Platelet Count 175 10^3/uL (130-400); RDW 12.2 % (11.8-14.1); RDW-SD 44.2 fL; WBC 8.43 10^3/uL (4.4-10.8)
--- NOTE | 2023-11-20 07:10 | DSE_ITS ---
Date of service: 11/20/23 Time of Service: 09:30 DS: Diagnosis Discharge Diagnosis (1) Diplopia: Status: Acute Asessment and Plan: -Patient initially presented with double vision without other neurologic findings -Patient states that preceding this he had signs and symptoms consistent with a sinus infection which is only been going on for about 5 days -Head CT was negative -No arrhythmia on telemetry -Given that is over the weekend, patient did not want a wait until Wednesday to have echocardiogram or MRI and requested discharge -Patient will be discharged with high-dose statin and asked -Patient will be set up with outpatient echocardiogram, MRI, neurology and ophthalmology follow-up appointments -Was initial concern for possible Lyme disease for which the patient was given Rocephin, however patient not reporting any tick bites, fever, joint pain with generalized weakness -Tickborne panel was sent, will follow-up results (2) Diabetes mellitus type II, controlled: Asessment and Plan: - Continue home regimen (3) Hypertension: Asessment and Plan: - Continue home regimen (4) Mixed hyperlipidemia: (5) Chronic kidney disease: (6) Asthma: Status: Chronic Discharge Plan Disposition Patient Disposition: Home Condition: Good Discharge Details Reason For Visit: Diplopia Admit Date/Time: 11/19/23 21:48 Admit Provider: Jp Vu Attending Provider: Jp Vu Primary Care Provider: Hernandez Melendrez [facility] Course Hospital Course: Patient initially presented with double vision without other neurologic findings and has a negative CT. Overnight the patient did not have any changes in telemetry, and given that MRI is unavailable over the weekend the patient requested to be discharged with close outpatient follow-up. Home Meds and New Rx's Prescriptions: New atorvastatin 40 mg Tablet 80 mg PO QPM Qty: 90 0RF aspirin [Children's Aspirin] 81 mg Tablet,Chewable 81 mg PO DAILY Qty: 90 0RF Continued Jardiance 25 mg tablet 25 mg PO DAILY Qty: 90 3RF semaglutide 14 mg tablet 14 mg PO DAILY Qty: 90 3RF multivitamin [Daily Vitamin] 1 EACH tablet 1 ea PO DAILY cholecalciferol (vitamin D3) 1,000 UNIT tablet 1,000 unit PO DAILY ibuprofen 200 MG tablet 400 mg PO Q4H PRN Dupixent Syringe 300 mg/2 mL syringe 300 mg SC Q2W Qty: 4 12RF Patient Comments: due this weekend metformin 1,000 mg tablet 1,000 mg PO BID Qty: 180 3RF Rx Instructions: to control diabetes (E11.9) losartan-hydrochlorothiazide 100-25 mg tablet 1 tab PO DAILY Qty: 90 3RF levothyroxine 125 mcg tablet 125 mcg PO DAILY Qty: 90 3RF lovastatin 40 mg tablet 40 mg PO DAILY Qty: 90 3RF Rx Instructions: to reduce cardiovascular risk, diabetes, lower cholesterol No Action (DME) FreeStyle Lite Strips 1 EACH strip 1 ea Miscellaneous DAILY Qty: 100 Rx Instructions: To test Blood Sugars qd, to keep AIC below 7.0. DX: 11.9 (DME) lancets [FreeStyle Lancets] 1 EACH misc 1 ea Miscellaneous DAILY Qty: 100 Rx Instructions: To test blood sugars daily to keep AIC below 7.0. Dx: 11.9. Discharge Instructions Stand Alone Forms: Nursing Discharge Form Referrals: Hernandez Melendrez DO [Primary Care Provider] - (Please call on Wednesday for a hospital follow up within 10-14 days. ) Activity:: Activity as Tolerated Equipment/Supplies:: No Equipment Needed Diet:: As Tolerated Discharge Orders Discharge Orders: Discharge Order (Routine); Ordered 11/20/23 Ordered By: Chapincito Turner Discharge Data Discharge Date/Time-TO BE ENTERED AT DEPARTURE: 11/20/23 09:23 DS: Summary Time Spent with Patient providing and/or coordinating discharge services: Greater than 30 minutes Status at Discharge Functional status at discharge: independent ambulation Overall status at discharge: patient is back to baseline Mental Status: mental status grossly normal Speech and Movement: speech and movement normal Mood: congruent mood Affect: normal affect Quality:SDOH Health Related Social Needs: No Data to Display Exam Narrative Exam Narrative: Well-appearing older gentleman sitting up at the edge of the bed in no acute distress, ANO x 4, heart regular rate rhythm, lungs clear to auscultation bilaterally, abdomen soft, nontender, nondistended, normal strength and sensation in bilateral upper and lower extremities, cranial nerves II through XII intact with right eye experiencing medial deviation which improves with closing of the left eye Psych Mental Status: mental status grossly normal Speech and Movement: speech and movement normal Mood: congruent mood Affect: normal affect DS: Data Vitals/I&O Vitals and I&O: Vital Signs Temperature 97.0 F L 11/20/23 03:31 Temperature Source Tympanic 11/20/23 03:31 Pulse 68 11/20/23 03:31 Pulse Rhythm Regular 11/20/23 05:50 Pulse 68 11/19/23 22:01 Respiratory Rate 18 11/20/23 03:31 Respiratory Effort Normal, Non-Labored 11/20/23 05:50 Respiratory Depth Normal 11/20/23 05:50 Respiratory Pattern Normal 11/20/23 05:50 Blood Pressure 126/62 11/20/23 03:31 Blood Pressure Mean 106 11/19/23 22:01 Blood Pressure Position Sitting 11/19/23 18:14 Pulse Oximetry 94 11/20/23 03:31 Oxygen Delivery Method Room Air 11/20/23 03:31 Oxygen Flow Rate 0 11/20/23 03:31 Pain Level 0 11/20/23 03:31 Intake & Output 11/19/23 11/20/23 11/20/23 17:59 05:59 17:59 Intake Total 1460 / 1460 Balance 1460 / 1460 Weight 282 lb 291 lb 3.69 oz Intake: IV 1010 / 1010 Oral 450 / 450 Data Completed and Pending Labs on day of discharge: Labs from last 24 hours 11/20/23 11/20/23 11/20/23 Unknown 06:45 06:43 WBC Pending RBC Pending Hgb Pending Hct Pending MCV Pending MCH Pending MCHC Pending RDW Pending Plt Count Pending MPV Pending Immature Gran % Neutrophils % Lymphocytes % Monocytes % Eosinophils % Basophils % Nucleated RBC % Absolute Neutrophils Absolute Lymphocytes Absolute Monocytes Absolute Eosinophils Absolute Basophils PT Pending INR Pending Sodium Pending Potassium Pending Chloride Pending Carbon Dioxide Pending Anion Gap Pending BUN Pending Creatinine Pending Est GFR (CKD-EPI 2020) Pending Glucose Pending Calcium Pending Magnesium Pending Total Bilirubin Pending AST Pending ALT Pending Alkaline Phosphatase Pending C-Reactive Protein Pending Total Protein Pending Albumin Pending Procalcitonin Pending TSH Free T4 B. divergens/MO-1 PCR Babesia duncani (PCR) Babesia microti DNA PCR E.chaffeensis DNA (PCR) E.ewingii/canis DNA PCR E.muris eauclairensis (PCR) A. phagocytophilum (PCR) Blood B. miyamotoi (PCR) 11/19/23 18:34 WBC 11.38 H RBC 4.99 Hgb 16.7 Hct 48.6 MCV 97 H MCH 33.5 H MCHC 34.4 RDW 12.2 Plt Count 205 MPV 9.8 Immature Gran % 0.5 Neutrophils % 40.6 Lymphocytes % 34.4 Monocytes % 9.6 Eosinophils % 14.3 Basophils % 0.6 Nucleated RBC % 0.0 Absolute Neutrophils 4.62 Absolute Lymphocytes 3.91 H Absolute Monocytes 1.09 H Absolute Eosinophils 1.63 H Absolute Basophils 0.07 PT INR Sodium 140 Potassium 3.7 Chloride 101 Carbon Dioxide 28.2 Anion Gap 10.8 BUN 31 H Creatinine 1.4 H Est GFR (CKD-EPI 2020) 54.41 Glucose 141 H Calcium 9.9 Magnesium 2.0 Total Bilirubin 0.8 AST 14 L ALT 30 Alkaline Phosphatase 84 C-Reactive Protein Total Protein 9.2 H Albumin 4.3 Procalcitonin TSH 7.54 H Free T4 1.11 B. divergens/MO-1 PCR Pending Babesia duncani (PCR) Pending Babesia microti DNA PCR Pending E.chaffeensis DNA (PCR) Pending E.ewingii/canis DNA PCR Pending E.muris eauclairensis (PCR) Pending A. phagocytophilum (PCR) Pending Blood B. 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) Asthma (Chronic) Diplopia (Acute) Patellar bursitis of right knee (Acute) Umbilical hernia (Acute) Eversion deformity of left foot (Acute) Sinusitis with nasal polyps (Chronic 02/22/17) [place] Impotence due to erectile dysfunction (Chronic 04/15/12) 03/2012 Chronic sinusitis, unspecified (Chronic 09/14/17) Dr Pedraza [facility] ENT- chronic rhinosinusitis with polyposis Bilateral nasal endoscopy Medical History Diabetes mellitus type II, controlled (12/18/07) DIET CONTROLLED, 2008 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 No problems noted. Social History Smoking/Tobacco Use Status: Never Smoking risk assessment performed?: Yes Alcohol Intake: never Drug use: Never Substance use type: does not use Housing: house current occupation: [employer] Pets and animals: No Sexually active: Yes Current gender identity: male What is your relationship status?: How often do you talk on the phone with friends or family?: three or more times per week How often do you get together with friends or relatives?: three or more times per week Do you belong to any clubs or organized social groups?: no Panel score (0-1 are the most socially isolated patients): 1 What type of physical activity do you participate in: decline to answer Duration: decline to answer Frequency: decline to answer Seatbelt use: always Drive intox or ride w/intox driver manager: No Working smoke detector in home: Yes Fire extinguisher in home: Yes Carbon monox detector in home: Yes Time Spent with Patient Time Spent with Patient: <45 minutes Time was spent: preparing to see the patient(eg.review tests), obtaining and/or reviewing separately otained hiistory, ordering medications,tests, procedures, referring, communicating with other health care manager, indepentently interpreting results, counseling the patient and care coordination
[2023-11-20 07:18] LABS: INR 1.1 (0.9-1.1); Prothrombin Time 11.1 sec (9.1-11.1)
[2023-11-20 07:28] LABS: ALT 23 U/L (16-63); AST 12 U/L (15-37); Albumin 3.6 g/dL (3.4-5.0); Alkaline Phosphatase 69 U/L (46-116); Anion Gap 7.5 mmol/L (3-11); BUN 28 mg/dL (7-18); Bilirubin, Total 0.9 mg/dL (0.2-1.0); CO2 29.5 mmol/L (21.0-32.0); CREATININE 1.2 mg/dL (0.70-1.30); Calcium 9.1 mg/dL (8.5-10.1); Chloride 103 mmol/L (98-107); Estimated GFR 65.46 (mL/min/1.73m2); Glucose 132 mg/dL (74-106); Magnesium 1.9 mg/dL (1.8-2.4); Potassium 3.4 mmol/L (3.5-5.1); Sodium 140 mmol/L (136-145); Total Protein 7.8 g/dL (6.4-8.2)
[2023-11-20 07:31] LABS: C-Reactive Protein < 0.50 mg/dL (<or=0.5)
[2023-11-20 07:58] LABS: Procalcitonin < 0.1 ng/mL
--- NOTE | 2023-11-20 10:16 | PDOC.CMPRO ---
Date of service: 11/20/23 Time of Service: 10:16 Care Management Progress Note Progress Note Text Progress Note Text: S/O:Pete presented to the ED with double vision. He had a Ct scan which was negative. Pete was monitored overnight and discharged this morning. He will follow up with neurology and ophthalmology as an outpatient and also will be scheduled for an outpatient MRI and Echocardiogram. A: Pete is a 68 year old man admitted on 11/19/23 with diplopia. P: Pete will be discharged home with no new services. He will continue his neurology and ophthalmology workups as an outpatient and follow up with his community providers. Pete will transport home with a friend. SDOH(Care Management) Screening Will the Patient Participate in the Screening?: Yes Do you worry about having a steady place to live?: no Problems where you live: no known problems In the past 12 months, have you had to go without electric, gas, oil or water in your home?: no Have you or anyone in your house had to go without enough food to eat?: no Has lack of transportation kept you from medical appointments or from doing things needed for daily living?: no Has anyone in your support network made you feel unsafe for any reason?: no
[2023-11-23 18:57] LABS: Anaplasma phagocytophilum Negative (Negative); B. miyamotoi PCR Negative (Negative); Babesia divergens/MO-1 Negative (Negative); Babesia duncani Negative (Negative); Babesia microti Negative (Negative); Ehrlichia chaffeensis Negative (Negative); Ehrlichia ewingii/canis Negative (Negative); Ehrlichia muris eauclairensis Negative (Negative)
== END 2023-11-20 09:23 | disposition home or self-care (01) | DRG 123 ==
LOC: ER 21:57 → MS 22:39
PROVIDERS: Admitting Provider Family Medicine; Emergency Provider Emergency Medicine; PCP Family Medicine; Visit Provider Family Medicine
DX: H53.2 Diplopia (principal); E11.22 Type 2 diabetes mellitus with diabetic chronic kidney disease; I12.9 Hypertensive chronic kidney disease with stage 1 through stage 4 chronic kidney disease, or unspecified chronic kidney disease; E78.2 Mixed hyperlipidemia; N18.31 Chronic kidney disease, stage 3a; J45.40 Moderate persistent asthma, uncomplicated; Z79.899 Other long term (current) drug therapy; Z79.51 Long term (current) use of inhaled steroids; J32.9 Chronic sinusitis, unspecified; M21.072 Valgus deformity, not elsewhere classified, left ankle; E03.9 Hypothyroidism, unspecified; Z79.84 Long term (current) use of oral hypoglycemic drugs
CPT/HCPCS: 00123; 36415; 70496; 70498; 80053; 84145; 85027; 87798; 93005; 96361; 96365; 99285; 83735; 84439; 84443; 85025; 85610; 86140; 93010; 99223; 99238; G0378; J0696; J1815; J3490

== ENCOUNTER → 2023-11-23 09:56 | Outpatient (CLI) | payer MEDICARE, SELFPAY ==
--- NOTE | 2023-11-23 10:00 | DI.US_ITS ---
APPROVED REPORT EXAM: Comprehensive 2D, Doppler, and color-flow Echocardiogram Patient Location: Out-Patient Non Destructive Testing Supervisor: Gisella Fan RDCS (AE) Indications: CVA, TIA Other Information Study Quality: Adequate. Technically limited study due to body habitus limited subcostal imaging.. Conclusion Normal left ventricular wall thickness and chamber size. Ejection fraction is 57%. Wall motion is n ormal Normal right ventricular size and function Both atria are normal in size There is no structural or hemodynamically significant valvular disease Mildly dilated ascending aorta Wall motion Left Ventricle The left ventricle is normal size. The left ventricular systolic function is normal. The left ventric ular ejection fraction is within the normal range. There is normal left ventricular wall thickness. T here is normal LV segmental wall motion. There is no ventricular septal defect visualized. LVEF is 57 %. Right Ventricle The right ventricle is normal size. The right ventricular systolic function is normal. Atria The left atrium size is normal. The right atrium size is normal. The interatrial septum is intact wit h no evidence for an atrial septal defect. Aortic Valve The Aortic valve is sclerotic. Aortic valve is trileaflet. There is no aortic valvular stenosis. No a ortic regurgitation is present. Mitral Valve Mild mitral annular calcification. No evidence of mitral valve stenosis. Trace mitral regurgitation. Tricuspid Valve The tricuspid valve is normal in structure. There is no tricuspid valve stenosis. Trace tricuspid reg urgitation. Pulmonic Valve The pulmonary valve is normal in structure. There is no pulmonic valvular stenosis. Trace pulmonic re gurgitation. Great Vessels The aortic root is normal in size. The ascending aorta is mildly dilated. Aortic arch is not well vis ualized. The IVC was not clearly visualized. Pericardium Technically limited subcostal imaging, Body habitus. There is no pericardial effusion. 2D Dimensions IVSD d PLAX 0.90 cm M: 0.6-1.2 Ao Root d 2.79 cm M: 3.1 - 3.7 LVPW d PLAX 0.93 cm M: 0.6 - 1.2 Ao Asc Diam d 3.61 cm M: 2.6 - 3.4 LVID d PLAX 4.84 cm M: 4.2 - 5.8 LVDs 3.40 cm M: 2.5 - 4.0 LV EF Teichholz 56.6 % FS 29.69 % LV EDV (Teich) 109.4 mL LV ESV (Teich) 47.4 mL M-Mode TAPSE 2.56 cm (M/F) >1.7 Auto EF LV EDV A4C 127.4 mL LV EDV A2C 132.8 mL LV EDV BP 132.7 mL LV ESV A4C 57.6 mL LV ESV A2C 59.6 mL LV ESV BP 57.6 mL LVEF(%) A4C 54.8 % LVEF(%) A2C 55.1 % LVEF(%) BP 56.6 % LV SV A4C 69.9 ml LV SV A2C 73.2 ml LV SV BP 75.1 ml LV CO A4C 4.2 L/min LV CO A2C 4.5 L/min LV CO BP 4.3 L/min HR A4C 59.80 BPM HR A2C 60.91 BPM LV EDV Index (BP) LA Volume LA Length A4C 6.2 cm LA Length A2C 5.8 cm LA Area A4C s 19.53 cm2 LA Area A2C s 17.34 cm2 LA Vol A4C A-L 52.65 mL LA Vol A2C A-L 44.10 mL LA Vol Biplane A-L 49.7 mL LA Vol/BSA A4C A-L LA Vol/BSA A2C A-L LA Vol/BSA BP A-L 19.5 mL/m2 LA Vol A4C MOD 48.9 mL LA Vol A2C MOD 42.5 mL LA Vol BP MOD 46.8 mL RA Volume RA Area A4C 21.1 cm2 RA ESV A4C (A-L) 69.8mL RA Vol/BSA A4C A-L RA Length A4C 5.4 cm RA ESV A4C (MOD) 63.1mL LV Diastology MV E' medial 0.085 (>0.07 m/s) MV E Vmax 0.76 (0.4-1.3 m/s) MV E/E' MED 8.97 (<14) MV A Vmax 0.75 (0.4-1.3 m/s) MV E' lateral 0.108 (>0.1 m/s) E/A Ratio 1.0 MV E/E' LAT 7.04 (<14) MV E' Average 0.096 m/s MV E/E'(average) 7.89 Aortic Valve AoV Vmax 1.48 m/s LVOT Vmax 1.04 m/s AoV Peak Grad 8.7 mmHg LVOT Peak Grad 4.3 mmHg AoV Area (Vmax) 2.29 cm2 LVOT VTI 0.246 m AoV VTI 0.340 m LVOT Mean Grad 2.4 mmHg AoV Mean [place]. 0.99 m/s LVOT SV 79.87 mL AoV Mean Grad 4.5 mmHg LVOT Diam s 2.00 cm AoV Area (VTI) 2.35 cm2 Velocity Ratio 0.70 Mitral Valve MV DT 237 (160-240 msec) MV Vmax TIPS 0.87 m/s MV Mean Grad 0.9 (<2mmHg) MV VTI 0.298 m Pulmonary Valve PV Vmax 0.99 (0.5-1.5 m/s) RVOT Vmax 0.65 m/s PV Peak Grad 4.0 mmHg RVOT Peak Gr. 1.7 mmHg PV Mean [place] 0.70 m/s RVOT VTI 0.156 m PV Mean Grad 2.2 mmHg RVOT Mean Gr. 1.0 mmHg Tricuspid Valve TV S' 0.18 m/s TR Vmax 2.53 m/s TR Peak Grad 25.6 mmHg
== END ==
LOC: DI 09:57
PROVIDERS: PCP Family Medicine; Visit Provider Family Medicine
DX: G45.9 Transient cerebral ischemic attack, unspecified (principal); I77.810 Thoracic aortic ectasia
CPT/HCPCS: 93306

== ENCOUNTER → 2023-11-25 00:39 | Outpatient (CLI) | payer MEDICARE, SELFPAY ==
--- NOTE | 2023-11-25 | DI.MRI_ITS ---
Exam(s) MR BRAIN WO EXAM: MR BRAIN WO CLINICAL HISTORY: H53.2 Diplopia,Evaluate for stroke TECHNIQUE: Multiplanar multisequence MRI of the brain was performed. COMPARISON: CT CT BRAIN NECK CTA from 11/19/2023 FINDINGS: VENTRICLES AND EXTRA AXIAL SPACES: Normal in size and morphology for the patient's age. MIDLINE SHIFT: None. CEREBRAL PARENCHYMA: No focus of restricted diffusion to suggest acute infarct. No space-occupying le wolf identified. Mild atrophy consistent with the patient's age. Mild scattered foci of high signal in the white matter consistent with sequela of chronic microvascular disease. HEMORRHAGE: None. BRAINSTEM/CEREBELLUM: Normal. VISUALIZED PARANASAL SINUSES/MASTOIDS:Mucosal thickening in the maxillary sinuses. Prior sinus surge ry. Vasculature: Normal flow void. PITUITARY GLAND: Unremarkable. ORBITS: Unremarkable. IMPRESSION: No evidence of acute infarct or hemorrhage. Mild white matter changes of microvascular disease. DATA REPOSITORY:
== END ==
LOC: DI 00:39
PROVIDERS: PCP Family Medicine; Visit Provider Family Medicine
DX: H53.2 Diplopia (principal)
CPT/HCPCS: 70551